=== PATIENT | female | born 1960 | race Two or more races ===

== ENCOUNTER 2025-04-27 10:03 | Inpatient (IN) | payer OTHER ==
[~2025-04-27] VITALS: Ht 165.1 cm; Wt 85.8 kg
--- NOTE | 2025-04-27 10:13 | ED.PDOC ---
HPI Comments 65 year old female with PMHx NV, DM, HTN, asthma, presents to the ED via EMS with a chief complaint of chest pressure onset 3 days. Per EMS, patient was at PCP clinic, 911 was called due to patient's symptoms, was hypertensive. Upon EMS arrival, patient's BP was 180 systolic. Patient states she began experiencing chest pressure radiating to her head 3 days ago, also began experiencing nausea. Patient recently moved in February 2025, was having issues with insurance, has not been complaint with medication. Patient had appointment with PCP today, was told she is dehydrated. Denies fever, chills, vomiting, diarrhea, abdominal pain, dizziness, blurred vision, numbness/tingling, dysuria, hematuria, shortness of breath, cough, cold, congestion. No other symptoms or modifying factors present at this time. Time Seen by MD: 10:08 Reviewed Notes: Medications, Allergies Allergies: Coded Allergies: Flu Virus Vaccine (Verified Allergy, Unknown, 04/27/25) Sulfa Antibiotics (Verified Allergy, Unknown, 04/27/25) Information Source: Patient, Emergency Med Personnel Mode of Arrival: EMS Severity: Moderate Timing: Days Duration: Since onset Prehospital treatment: None Location: Chest (L) Radiation: Other Quality: Pressure Onset: At Rest Cardiac Risk Factors: HTN, Diabetes PE Risk Factors: None History of: NV Past Medical History PAST MEDICAL HISTORY: Asthma, DM, HTN, NV Surgical History: Denies all surgeries 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 Family History Family History: Reviewed,noncontributory to illness, No family hx of Cancer, No family hx of DM, No family hx of Heart lidya, No family hx of HTN, No family hx ofKidney lidya, No family hx of Liver lidya, No family hx of Lung lidya, No family hx of Stroke Social History Smoker: Non-Smoker Alcohol: Denies ETOH Use Drugs: Denies Drug Use Lives In: Home Constitutional: denies: chills, diaphoresis, fatigue, fever, malaise, sweats, weakness, others EENTM: denies: blurred vision, double vision, ear bleeding, ear discharge, ear drainage, ear pain, ear ringing, eye pain, eye redness, hearing loss, mouth pain, mouth swelling, nasal discharge, nose bleeding, nose congestion, nose pain, photophobia, tearing, throat pain, throat swelling, voice changes, others Respiratory: denies: cough, hemoptysis, orthopnea, SOB at rest, shortness of breath, SOB with excertion, stridor, wheezing, others Cardiovascular: reports: chest pain, others (hypertension); denies: dizzy spells, diaphoresis, Dyspnea on exertion, edema, irregular heart beat, left arm pain, lightheadedness, palpitations, PND, syncope Gastrointestinal: reports: nausea; denies: abdomen distended, abdominal pain, blood streaked bowels, constipated, diarrhea, dysphagia, difficulty swallowing, hematemesis, melena, poor appetite, poor fluid intake, rectal bleeding, rectal pain, vomiting, others Genitourinary: denies: abnormal vagina bleeding, burning, dyspareunia, dysuria, flank pain, frequency, hematuria, incontinence, pain, , vagina discharge, urgency, others Neurological: reports: headache; denies: dizziness, fainting, left sided numbness, left sided weakness, numbness, paresthesia, pre-existing deficit, right sided numbness, right sided weakness, seizure, speech problems, tingling, tremors, weakness, others Musculoskeletal: denies: back pain, gout, joint pain, joint swelling, muscle pain, muscle stiffness, neck pain, others Integumetry: denies: bruises, change in color, change in hair/nails, dryness, laceration, lesions, lumps, rash, wounds, others Allergic/Immunocompromised: denies: Difficulty Healing, Frequent Infections, Hives, Itching, others Hematologic/Lymphatic: denies: anemia, blood clots, easy bleeding, easy brui sing, swollen glands, others Endocrine: denies: excessive hunger, excessive sweating, excessive thirst, ex cessive urination, flushing, intolerance to cold, intolerance to heat, unexplained weight gain, unexplained weight loss, others Psychiatric: denies: anxiety, bipolar disorder, depression, hopeless, panic disorder, schizophrenia, sleepless, suicidal, others All Other Systems: Reviewed and Negative Physical Exam General Appearance: Normal HEENT: Normal ENT Inspection, Pharynx Normal, TMs Normal Neck: Full Range of Motion, Non-Tender, Normal, Normal Inspection Respiratory: Chest Non-Tender, Lungs Clear, No Accessory Muscle Use, No Respiratory Distress, Normal Breath Sounds Cardiovascular: No Edema, No JVD, No Murmur, No Gallop, Normal Peripheral Pulses, Regular Rate/Rhythm Breast Exam: Deferred Gastrointestinal: No Organomegaly, Non Tender, No Pulsatile Mass, Normal Bowel Sounds, Soft Genitalia: Deferred Pelvic: Deferred Rectal: Deferred Extremities: No calf tenderness, Normal capillary refill, Normal inspection, Normal range of motion, Non-tender, No pedal edema Musculoskeletal : Apperance: Normal Neurologic: Alert, lead java j2ee developer II-XII nml as Tested, No Motor Deficits, Normal Affect, Normal Mood, No Sensory Deficits Cerebellar Function: Normal Reflexes: Normal Skin: Dry, Normal Color, Warm Lymphatic: No Adenopathy Was a procedure done? Was a procedure done?: No CP Differential Dx Differential Diagnosis: Hypoxia, MAT, NV Differential Diagnosis: HTN Essential, HTN Accelerated Differential Diagnosis: Gastritis, Myocardial Infarction, Pericarditis X-Ray, Labs, Meds, VS Vital Signs Date Time Temp Pulse Resp B/P (MAP) Pulse Ox O2 Delivery O2 Flow Rate FiO2 04/27/25 13:09 81 04/27/25 12:00 79 19 177/94 (121) 96 04/27/25 12:00 79 04/27/25 11:31 211/102 04/27/25 11:13 65 04/27/25 10:34 97.7 68 17 189/82 (117) 97 97.7 04/27/25 10:16 68 17 97 Room Air* 0 21 04/27/25 10:11 56 04/27/25 10:03 97.7 59 23 170/99 95 97.7 Lab Test 04/27/25 13:20 04/27/25 11:41 04/27/25 11:08 04/27/25 10:18 Range/Units Troponin I High Sensitivity 24 22 20 </=34 ng/L Urine Color Light-yellow Yellow Urine Clarity Clear Clear Urine pH 6.5 5.0-9.0 Urine Specific [place] 1.013 1.001-1.035 Urine Protein Negative Negative Urine Ketones Negative Negative Urine Blood Negative Negative /uL Urine Nitrite Negative Negative Urine Bilirubin Negative Negative Urine Urobilinogen Normal Negative mg/dL Urine Leukocyte Esterase Negative Negative /uL Urine RBC 4 0 - 4 /hpf Urine Microscopic WBC 1 0-5 /HPF Urine Squamous Epithelial Cells Few <5 /hpf Urine Bacteria None seen None Seen /hpf Urine Glucose Normal Normal mg/dL White Blood Count 6.2 4.4-10.8 10^3/uL Red Blood Count 4.78 4.0-5.20 10^6/uL Hemoglobin 15.3 12.2-16.2 g/dL Hematocrit 43.4 36.0-46.0 % Mean Corpuscular Volume 90.9 80.0-100.0 fL Mean Corpuscular Hemoglobin 32.1 H 28.0-32.0 pg Mean Corpuscular Hemoglobin Concent 35.3 32.0-36.0 g/dL Red Cell Distribution Width 12.4 11.8-14.3 % Platelet Count 190 140-450 10^3/uL Mean Platelet Volume 7.5 6.9-10.8 fL Neutrophils (%) (Auto) 59.9 37.0-80.0 % Lymphocytes (%) (Auto) 27.8 10.0-50.0 % Monocytes (%) (Auto) 9.4 0.0-12.0 % Eosinophils (%) (Auto) 2.2 0.0-7.0 % Basophils (%) (Auto) 0.7 0.0-2.0 % Neutrophils # (Auto) 3.7 1.6-8.6 10 ^3/uL Lymphocytes # (Auto) 1.7 0.4-5.4 10 ^3/uL Monocytes # (Auto) 0.6 0-1.3 10 ^3/uL Eosinophils # (Auto) 0.1 0-0.8 10 ^3/uL Basophils # (Auto) 0 0-0.2 10 ^3/uL Nucleated Red Blood Cells 0.0 % Sodium Level 141 136-145 mmol/L Potassium Level 4.2 3.5-5.1 mmol/L Chloride Level 105 98-107 mmol/L Carbon Dioxide Level 29 20-31 mmol/L Anion Gap 7 5-15 Blood Urea Nitrogen 9 9-23 mg/dL Creatinine 0.82 0.550-1.02 mg/dL Glomerular Filtration Rate Calc 80 >90 mL/min BUN/Creatinine Ratio 11.0 10.0-20.0 Serum Glucose 190 H 74-106 mg/dL Calcium Level 9.5 8.7-10.4 mg/dL Current Medications Medications (Trade) Dose Ordered Sig/Laureano Route Start Time Stop Time Status Last Admin Acetaminophen/ Hydrocodone Bitart ([place] 5/325MG Tab) 1 tab ONCE ONCE PO 04/27/25 10:15 04/27/25 10:16 DC 04/27/25 10:33 Hydralazine HCl (Apresoline Injection) 20 mg ONCE ONCE IV 04/27/25 11:15 04/27/25 11:16 DC 04/27/25 11:[address] [address] Ph: [phone] DIAGNOSTIC IMAGING Diagnostic Imaging Report : [id number] Signed PATIENT: Danni Sharma ACCT: [id number] UNIT: [id number] : 1960 LOC: ER ROOM / BED: / AGE / SEX: 65 / F ADM STATUS: REG ER SERVICE 102 ORDERING PHYSICIAN: ERIC BAY MD PROCEDURE(s): CXRP - CHEST PORTABLE REASON: cp ORDER NUMBER(s): [id number], ACCESSION NUMBER(s): [id number] EXAM: XY CHEST PORTABLE Indication: cp Technique: Single frontal view of the chest was obtained Comparison: None FINDINGS: Lines and Tubes: None Lungs: No focal consolidation. Pleura: No effusion. No pneumothorax. Cardiomediastinal contours: Unremarkable Bones: No acute osseous abnormality. IMPRESSION: No acute cardiopulmonary disease. ATED BY: NICKY ROBLES MD DICTATED DATE/TIME: 04/27/25 1037 SIGNED BY: NICKY ROBLES MD SIGNED DATE/TIME: 04/27/25 1037 CC: Time of 1ST Reevaluation: 10:38 Reevaluation 1ST: Unchanged Patient Education/Counseling: Diagnosis, Treatment, Prognosis Family Education/Counseling: No Family Present SEPSIS Sepsis Screen Physician Orders Chest Portable (04/27/25 10:27) Electrocardigram (04/27/25 10:09) Electrocardigram (04/27/25 11:09) Electrocardigram (04/27/25 13:09) Head Without Contrast (04/27/25 11:57) Vital Signs Date Time Temp Pulse Resp B/P (MAP) Pulse Ox O2 Delivery O2 Flow Rate FiO2 04/27/25 13:09 81 04/27/25 12:00 79 19 177/94 (121) 96 04/27/25 12:00 79 114/25 11:31 211/102 04/27/25 11:13 65 04/27/25 10:34 97.7 68 17 189/82 (117) 97 97.7 04/27/25 10:16 68 17 97 Room Air* 0 21 04/27/25 10:11 56 04/27/25 10:03 97.7 59 23 170/99 95 97.7 Laboratory Tests Test 04/27/25 10:18 White Blood Count 6.2 10^3/uL (4.4-10.8) Medications Medications Dose Ordered Sig/Laureano Route Start Time Stop Time Status Last Admin Dose Admin Acetaminophen/ Hydrocodone Bitart 1 tab ONCE ONCE PO 04/27/25 10:15 04/27/25 10:16 DC 04/27/25 10:33 Hydralazine HCl 20 mg ONCE ONCE IV 04/27/25 11:15 04/27/25 11:16 DC 04/27/25 11:31 Departure 1 Departure Time of Disposition: 14:23 (Patient presented with hypertension and symptoms concerning for hypertensive emergency. Patient is receiving iv blood pressure medications requiring intensive monitoring. Data: 1. I ordered and reviewed the result of at least 3 labs including a CBC, BMP, and Urinalysis. 2. I independent ly interpreted the following tests: CT Brain: Which appears benign. EKG which is Normal Sinus RhythmRisk:This patient has a high risk of morbidity due to further diagnostic testing or treatment and may suffer from an acute cardiac disorder. Workup reveals hypertensive emergency and patient should be admitted for further workup. and possible expert consultation. ) Impression: Primary Impression: Hypertensive emergency Disposition: 09 ADMITTED INPATIENT Admit to: Tele Condition: Guarded Critical Care Note Critical Care Time?: Yes Critical care comment: Hypertensive emergency Authorized and Performed by: Eric Bay MD Total critical care time: Approximately 39 minutes Due to a high probability of clinically significant, life threatening deterioration, the patient required my highest level of preparedness to intervene emergently and I personally spent this critical care time directly and personally managing the patient. This critical care time included obtaining a history; examining the patient; pulse oximetry; ordering and review of studies; arranging urgent treatment with development of a management plan; evaluation of patient's response to treatment; frequent reassessment; and, discussions with other providers. This critical care time was performed to assess and manage the high probability of imminent, life-threatening deterioration that could result in multi-organ failure. It was exclusive of separately billable procedures and treating other patients and teaching time. Please see my other sections and the rest of the note for further information on patient assessment and treatment. Stability Stability form required: No Heart Score Heart Score: Heart Score Response (Comments) Value History Moderate Suspicious 1 EKG Repolarization Disturb 1 Age 45-64 1 Risk Factors >3 or Hx ASHD 2 Troponin 1-2 x's Normal limit 1 Total 6 I personally scribed for ERIC BAY MD ([email or web address]) on 04/27/25 at 10:13. Electronically submitted by Devorah Lepe ([email or web address]). I personally scribed for ERIC BAY MD ([email or web address]) on 04/27/25 at 11:22. Electronically submitted by Devorah Lepe ([email or web address]). ERIC BAY MD Apr 27, 2025 10:13
[2025-04-27 10:16] VITALS: PULSE 68; RESP 17; O2SAT 97
[2025-04-27 10:32] LABS: Hematocrit 43.4 % (36.0-46.0); Hemoglobin 15.3 g/dL (12.2-16.2); Mean Corpuscular Hemoglobin 32.1 pg (28.0-32.0); Mean Corpuscular Volume 90.9 fL (80.0-100.0); Nucleated Red Blood Cells % 0.0 %
[2025-04-27] MEDS: HYDROcodone-ACET 5/325MG TAB PO ONE (10:33)
--- NOTE | 2025-04-27 10:39 | DVH ---
EXAM: XY CHEST PORTABLE Indication: cp Technique: Single frontal view of the chest was obtained Comparison: None FINDINGS: Lines and Tubes: None Lungs: No focal consolidation. Pleura: No effusion. No pneumothorax. Cardiomediastinal contours: Unremarkable Bones: No acute osseous abnormality. IMPRESSION: No acute cardiopulmonary disease.
[2025-04-27 10:42] LABS: Chloride 105 mmol/L (98-107); Potassium 4.2 mmol/L (3.5-5.1); Sodium 141 mmol/L (136-145)
[2025-04-27 10:43] LABS: Anion Gap 7 (5-15); Carbon Dioxide 29 mmol/L (20-31)
[2025-04-27 10:44] LABS: Calcium 9.5 mg/dL (8.7-10.4)
[2025-04-27 10:48] LABS: BUN/Creatinine Ratio 11.0 (10.0-20.0); Blood Urea Nitrogen 9 mg/dL (9-23)
[2025-04-27 10:55] LABS: Glucose 190 mg/dL (74-106)
[2025-04-27] MEDS: hydrALAZINE HCL 20 MG/ML VL IV ONE ×2 (11:31→19:35)
[2025-04-27 12:00] LABS: Urine Protein, UAD Negative (Negative)
--- NOTE | 2025-04-27 12:50 | DVH ---
EXAM: CT HEAD WITHOUT CONTRAST INDICATION: Headache, htn TECHNIQUE: CT of the head without intravenous contrast. Coronal and sagittal reformatted images are submitted. Radiation Dose : 1. Head: CT Dose: CTDI volume is 53.53 mGy. Dose-length product is 966.95 mGy*cm The dose indicators for CT are the volume Computed Tomography (CT) Dose Index (CTDIvol) and the Dose Length Product (DLP), and are measured in units of mGy and mGy-cm, respectively. These indicators are not patient dose, but values generated from the CT scanner acquisition factors. The report includes radiation exposure data for exposures received during this examination. All CT scans at this medical facility are performed using dose modulation techniques as appropriate to a performed exam including the following: Automated exposure control was utilized; adjustment of the MA and/or KV according to patient size; and use of iterative reconstruction technique. COMPARISON: None FINDINGS: There is no evidence of acute intracranial hemorrhage, extra-axial collection, mass effect, midline shift, herniation or hydrocephalus. There are periventricular and subcortical hypodensities, nonspecific, but likely reflecting sequelae of chronic microvascular ischemic changes. The ventricles, sulci and cisterns are age appropriate. The quintero-white differentiation is intact. Vascular calcifications are present in the vertebral arteries. The visualized paranasal sinuses and mastoid air cells are clear. No depressed calvarial fracture. The surrounding soft tissues are unremarkable. IMPRESSION: 1. No evidence of acute intracranial abnormality. HS:Y
[2025-04-27] MEDS ORDERED: DEXTROSE (50%) 50ML SYRG IV PRN (19:15)
[2025-04-27] MEDS ORDERED: ALBUTEROL SULF 2.5 MG/0.5ML(0.5%) NEB SOLN NEB PRN (19:15)
[2025-04-27] MEDS ORDERED: ACETAMINOPHEN 325 MG TAB PO PRN (19:15)
[2025-04-27 19:53] VITALS: PULSE 77; RESP 16; O2SAT 98
[2025-04-27] MEDS: ONDANSETRON HCL 4 MG/2 ML VIAL IV PRN (20:14)
[2025-04-27] MEDS: TEMAZEPAM 15 MG CAP PO PRN (20:14)
[2025-04-27 21:00] VITALS: BP 158/79; PULSE 89; RESP 16; TEMP 97.7; O2SAT 94
--- NOTE | 2025-04-27 21:32 | DVHHP2 ---
History of Present Illness Reason for Visit: Chest pain History of Present Illness 65-year-old female presents for evaluation of chest pain. Patient endorses a three day history of substernal pressure-like chest pain with associated headache. Today she presents to the clinic and was advised to present to the emergency department due to elevated blood pressure in the 180s. Denies shortness or breath. No other acute complaints reported. Past Medical History Diabetes mellitus, hypertension, mi, asthma Past Surgical History Denies Family History Noncontributory Smoke: No ALCOHOL: none Drugs: None Lives: with Family Review of Systems Review of Systems Review of systems are currently negative otherwise addressed in HPI. Allergies: Coded Allergies: Flu Virus Vaccine (Verified Allergy, Unknown, 04/27/25) Sulfa Antibiotics (Verified Allergy, Unknown, 04/27/25) Medications Current Medications Medications Dose Ordered Sig/Laureano Route Start Time Stop Time Status Last Admin Dose Admin Lisinopril 40 mg DAILY PO 04/28/25 10:00 Atorvastatin Calcium 40 mg HS PO 04/27/25 22:00 Metoprolol Tartrate 50 mg BID PO 04/27/25 22:00 Albuterol 2.5 mg Q6HPRN PRN NEB 04/27/25 19:15 Diagnostic Test (Pha) 1 strip ACHS 04/27/25 22:00 Insulin Human Regular ACHS SC 04/27/25 22:00 Dextrose 50 ml UD PRN IV 04/27/25 19:15 Temazepam 15 mg QHSP PRN PO 04/27/25 19:15 04/27/25 20:14 15 MG Ondansetron HCl 4 mg Q4HP PRN IV 04/27/25 19:15 04/27/25 20:14 4 MG Acetaminophen 650 mg Q6HP PRN PO 04/27/25 19:15 Exam Vital Signs Vital Signs Date Time Temp Pulse Resp B/P (MAP) Pulse Ox O2 Delivery O2 Flow Rate FiO2 04/27/25 20:55 89 16 158/79 (105) 97 04/27/25 19:53 Room Air* 0 21 04/27/25 10:34 97.7 97.7 Exam Gen: 65-year-old female in mild distress Skin: Warm, dry, normal color and texture, no rash. HEENT: Normocephalic atraumatic, mucous membranes moist and pink. Neck: Cervical and supraclavicular nodes normal without enlargement, trachea is midline, thyroid gland is normal without masses. Pulmonary: Clear to auscultation and percussion bilaterally. Cardiac: Regular rate and rhythm. No murmur Abdomen: Soft, nontender, nondistended, bowel sounds present all 4 quadrants, no guarding, no rigidity, no organomegaly. Extremities: No cyanosis, clubbing, no edema Neuro: Cranial nerves II through XII grossly intact, normal affect and speech, no focal motor deficits. Labs/Xrays ORDERING PHYSICIAN: ERIC GLEASON MD PROCEDURE(s): CXRP - CHEST PORTABLE REASON: cp ORDER NUMBER(s): [id number], ACCESSION NUMBER(s): [id number] EXAM: XY CHEST PORTABLE Indication: cp Technique: Single frontal view of the chest was obtained Comparison: None FINDINGS: Lines and Tubes: None Lungs: No focal consolidation. Pleura: No effusion. No pneumothorax. Cardiomediastinal contours: Unremarkable Bones: No acute osseous abnormality. IMPRESSION: No acute cardiopulmonary disease. RING PHYSICIAN: ERIC GLEASON MD PROCEDURE(s): HWOCT - HEAD WITHOUT CONTRAST REASON: headache, htn ORDER NUMBER(s): [id number], ACCESSION NUMBER(s): [id number] EXAM: CT HEAD WITHOUT CONTRAST INDICATION: Headache, htn TECHNIQUE: CT of the head without intravenous contrast. Coronal and sagittal reformatted images are submitted. Radiation Dose : 1. Head: CT Dose: CTDI volume is 53.53 mGy. Dose-length product is 966.95 mGy*cm The dose indicators for CT are the volume Computed Tomography (CT) Dose Index (CTDIvol) and the Dose Length Product (DLP), and are measured in units of mGy and mGy-cm, respectively. These indicators are not patient dose, but values generated from the CT scanner acquisition factors. The report includes radiation exposure data for exposures received during this examination. All CT scans at this medical facility are performed using dose modulation techniques as appropriate to a performed exam including the following: Automated exposure control was utilized; adjustment of the MA and/or KV according to patient size; and use of iterative reconstruction technique. COMPARISON: None FINDINGS: There is no evidence of acute intracranial hemorrhage, extra-axial collection, mass effect, midline shift, herniation or hydrocephalus. There are periventricular and subcortical hypodensities, nonspecific, but likely reflecting sequelae of chronic microvascular ischemic changes. The ventricles, sulci and cisterns are age appropriate. The quintero-white differentiation is intact. Vascular calcifications are present in the vertebral arteries. The visualized paranasal sinuses and mastoid air cells are clear. No depressed calvarial fracture. The surrounding soft tissues are unremarkable. IMPRESSION: 1. No evidence of acute intracranial abnormality. HS:Y Labs Test 04/27/25 13:20 04/27/25 11:41 04/27/25 10:18 Range/Units Troponin I High Sensitivity 24 </=34 ng/L Urine Color Light-yellow Yellow Urine Clarity Clear Clear Urine pH 6.5 5.0-9.0 Urine Specific [place] 1.013 1.001-1.035 Urine Protein Negative Negative Urine Ketones Negative Negative Urine Blood Negative Negative /uL Urine Nitrite Negative Negative Urine Bilirubin Negative Negative Urine Urobilinogen Normal Negative mg/dL Urine Leukocyte Esterase Negative Negative /uL Urine RBC 4 0 - 4 /hpf Urine Microscopic WBC 1 0-5 /HPF Urine Squamous Epithelial Cells Few <5 /hpf Urine Bacteria None seen None Seen /hpf Urine Glucose Normal Normal mg/dL White Blood Count 6.2 4.4-10.8 10^3/uL Red Blood Count 4.78 4.0-5.20 10^6/uL Hemoglobin 15.3 12.2-16.2 g/dL Hematocrit 43.4 36.0-46.0 % Mean Corpuscular Volume 90.9 80.0-100.0 fL Mean Corpuscular Hemoglobin 32.1 H 28.0-32.0 pg Mean Corpuscular Hemoglobin Concent 35.3 32.0-36.0 g/dL Red Cell Distribution Width 12.4 11.8-14.3 % Platelet Count 190 140-450 10^3/uL Mean Platelet Volume 7.5 6.9-10.8 fL Neutrophils (%) (Auto) 59.9 37.0-80.0 % Lymphocytes (%) (Auto) 27.8 10.0-50.0 % Monocytes (%) (Auto) 9.4 0.0-12.0 % Eosinophils (%) (Auto) 2.2 0.0-7.0 % Basophils (%) (Auto) 0.7 0.0-2.0 % Neutrophils # (Auto) 3.7 1.6-8.6 10 ^3/uL Lymphocytes # (Auto) 1.7 0.4-5.4 10 ^3/uL Monocytes # (Auto) 0.6 0-1.3 10 ^3/uL Eosinophils # (Auto) 0.1 0-0.8 10 ^3/uL Basophils # (Auto) 0 0-0.2 10 ^3/uL Nucleated Red Blood Cells 0.0 % Sodium Level 141 136-145 mmol/L Potassium Level 4.2 3.5-5.1 mmol/L Chloride Level 105 98-107 mmol/L Carbon Dioxide Level 29 20-31 mmol/L Anion Gap 7 5-15 Blood Urea Nitrogen 9 9-23 mg/dL Creatinine 0.82 0.550-1.02 mg/dL Glomerular Filtration Rate Calc 80 >90 mL/min BUN/Creatinine Ratio 11.0 10.0-20.0 Serum Glucose 190 H 74-106 mg/dL Calcium Level 9.5 8.7-10.4 mg/dL SEPSIS Sepsis Screen Date sepsis recognized/suspect: Apr 27, 2025 Time Sepsis recognized/suspect: 1944 Recent Procedure: No On Antibiotic Therapy: No Respiratory Rate >20: No Heart Rate >90: Yes Temp<36 C (96.8 F) or >38.3 C: No SBP <90 or MAP <65 mmHG: No New Acute Mental Status Change: No Is the patient on CPAP, BIPAP,: No Physician Orders Lisinopril Tablet (Zestril Tablet) (04/28/25 10:00) Atorvastatin (Lipitor) (04/27/25 22:00) Metoprolol Tartrate Tablet (Lopressor Ta (04/27/25 22:00) Albuterol Medneb (Ventolin Medneb) (04/27/25 19:15) Basic Metabolic Panel (04/28/25 04:00) Consistent Carb(Ccho)Diabetes (04/28/25 Breakfast) Glucose Blood (Accu-Chek Comfort Curve T (04/27/25 22:00) Insulin R (Human) (Insulin R) (04/27/25 22:00) Dextrose 50% Syringe (04/27/25 19:15) Admit (04/27/25 19:08) Temazepam (Restoril) (04/27/25 19:15) Ondansetron Hcl (Zofran) (04/27/25 19:15) Echo 2d Mode Cardiac Dop (04/27/25 19:08) Condition: Stable (04/27/25 19:08) Acetaminophen Tablet (Tylenol Tablet) (04/27/25 19:15) Bedrest With Bathroom Privileg (04/27/25 19:08) Vital Signs Date Time Temp Pulse Resp B/P (MAP) Pulse Ox O2 Delivery O2 Flow Rate FiO2 04/27/25 20:55 89 16 158/79 (105) 97 04/27/25 20:36 99 20 157/72 (100) 95 04/27/25 20:00 81 20 154/61 (92) 95 04/27/25 19:53 77 16 98 Room Air* 0 21 04/27/25 19:35 233/113 04/27/25 19:20 77 16 233/113 (153) 96 04/27/25 18:00 68 17 134/86 (102) 95 04/27/25 16:00 77 19 165/84 (111) 96 04/27/25 16:00 64 04/27/25 15:00 79 17 172/88 (116) 95 Laboratory Tests Test 04/27/25 10:18 White Blood Count 6.2 10^3/uL (4.4-10.8) Medications Medications Dose Ordered Sig/Laureano Route Start Time Stop Time Status Last Admin Dose Admin Acetaminophen/ Hydrocodone Bitart 1 tab ONCE ONCE PO 04/27/25 10:15 04/27/25 10:16 DC 04/27/25 10:33 1 TAB Hydralazine HCl 20 mg ONCE ONCE IV 04/27/25 11:15 04/27/25 11:16 DC 04/27/25 11:31 20 MG Hydralazine HCl 20 mg ONCE ONCE IV 04/27/25 19:30 04/27/25 19:31 DC 04/27/25 19:35 20 MG Ondansetron HCl 4 mg Q4HP PRN IV 04/27/25 19:15 04/27/25 20:14 4 MG Temazepam 15 mg QHSP PRN PO 04/27/25 19:15 04/27/25 20:14 15 MG Assessment/Plan Assessment/Plan Assessment Hypertensive urgency Diabetes mellitus Hypertension Plan Admit the patient to Med surge to the hospitalist As needed antihypertensives Resume home medications Echocardiogram pending Continue treatment per orders Plan discussed with: Patient My Orders Orders - VALENTIN MUHAMMAD Procedure Category Date Status Time Lisinopril Tablet PHA 04/28/25 In Process (Zestril Tablet) 10:00 Atorvastatin (Lipitor) PHA 04/27/25 In Process 22:00 Metoprolol Tartrate PHA 04/27/25 In Process Tablet (Lopressor Ta 22:00 Albuterol Medneb PHA 04/27/25 In Process (Ventolin Medneb) 19:15 Basic Metabolic Panel LAB 04/28/25 Verified 04:00 Consistent DIET 04/28/25 Transmitted Carb(Ccho)Diabetes Breakfast Glucose Blood PHA 04/27/25 In Process (Accu-Chek Comfort 22:00 Insulin R (Human) PHA 04/27/25 In Process (Insulin R) 22:00 Dextrose 50% Syringe PHA 04/27/25 In Process 19:15 Admit ADMIT 04/27/25 Transmitted 19:08 Temazepam (Restoril) PHA 04/27/25 In Process 19:15 Ondansetron Hcl PHA 04/27/25 In Process (Zofran) 19:15 Echo 2d Mode Cardiac US 04/27/25 Logged DOP 19:08 Condition: Stable KAREN 04/27/25 In Process 19:08 Acetaminophen Tablet PHA 04/27/25 In Process (Tylenol Tablet) 19:15 Bedrest With Bathroom KAREN 04/27/25 In Process Privileg 19:08 Date of Service: Apr 27, 2025 Billing Provider: VALENTIN MUHAMMAD Common Visit Codes: [id number] INP/OBS CARE (HIGH) VALENTIN MUHAMMAD Apr 27, 2025 21:31
[2025-04-27 21:45] VITALS: BP 170/85; PULSE 97; PULSE 99; RESP 19; TEMP 98.2; O2SAT 96; O2SAT 99
[2025-04-27] MEDS: ATORVASTATIN 20 MG TAB PO SCH (22:16)
[2025-04-27] MEDS: ACCU-CHEK COMFORT CURVE STRIP VI SCH (22:17)
[2025-04-27] MEDS: METOPROLOL TARTRATE 50 MG TAB PO SCH (22:17)
[2025-04-27] MEDS: InsuLIN REG 1unit/0.01ml Soln (100units/ml) SC SCH (22:21)
[2025-04-28] VITALS (14 sets, daily range): BP systolic 141–171; BP diastolic 77–93; PULSE 63–86; RESP 16–19; TEMP 97.9–98.4; O2SAT 95–100
[2025-04-28] MEDS: HYDROcodone-ACET 5/325MG TAB PO ONE (06:06)
[2025-04-28 06:13] LABS: Chloride 105 mmol/L (98-107); Potassium 4.0 mmol/L (3.5-5.1); Sodium 143 mmol/L (136-145)
[2025-04-28 06:14] LABS: Anion Gap 8 (5-15); Calcium 9.5 mg/dL (8.7-10.4); Carbon Dioxide 30 mmol/L (20-31)
[2025-04-28 06:19] LABS: BUN/Creatinine Ratio 9.7 (10.0-20.0)
[2025-04-28 06:23] LABS: Blood Urea Nitrogen 7 mg/dL (9-23); Glucose 150 mg/dL (74-106)
[2025-04-28] MEDS: LISINOPRIL 20 MG TAB PO SCH (09:52)
--- NOTE | 2025-04-28 12:49 | DVHPN2 ---
Subjective BP is better and no headaches Reviewed: H&P Changes from previous H/P or p: No Changes Objective Vitals Vital Signs Date Time Temp Pulse Resp B/P (MAP) Pulse Ox O2 Delivery O2 Flow Rate FiO2 04/28/25 11:41 18 158/77 (104) 04/28/25 10:53 75 04/28/25 10:00 99 Nasal Cannula* 2 28 04/28/25 09:00 98.2 98.2 Intake/Output Intake and Output 04/28/25 05:00 Intake Total 50 ml Balance 50 ml Intake Oral 50 ml # Voids 3 General Appearance: Alert, Oriented X3 HEENT: Atraumatic Lungs: Clear to auscultation Cardiovascular: Regular rate, Normal S1, Normal S2 Abdomen: Normal bowel sounds Medications Current Medications Medications Dose Ordered Sig/Laureano Route Start Time Stop Time Status Last Admin Dose Admin Lisinopril 40 mg DAILY PO 04/28/25 10:00 04/28/25 09:52 40 MG Atorvastatin Calcium 40 mg HS PO 04/27/25 22:00 04/27/25 22:16 40 MG Metoprolol Tartrate 50 mg BID PO 04/27/25 22:00 04/28/25 09:53 50 MG Albuterol 2.5 mg Q6HPRN PRN NEB 04/27/25 19:15 Diagnostic Test (Pha) 1 strip ACHS 04/27/25 22:00 04/28/25 12:37 1 STRIP Insulin Human Regular ACHS SC 04/27/25 22:00 04/28/25 12:40 3 UNITS Dextrose 50 ml UD PRN IV 04/27/25 19:15 Temazepam 15 mg QHSP PRN PO 04/27/25 19:15 04/27/25 20:14 15 MG Ondansetron HCl 4 mg Q4HP PRN IV 04/27/25 19:15 04/27/25 20:14 4 MG Acetaminophen 650 mg Q6HP PRN PO 04/27/25 19:15 Hydralazine HCl 10 mg Q6HP PRN IV 04/28/25 11:30 Laboratory Results Laboratory Tests 04/27/25 10:18 04/28/25 04:49 Chemistry Test 04/28/25 04:49 Calcium Level 9.5 mg/dL (8.7-10.4) Urinalysis Test 04/27/25 11:41 Urine Color Light-yellow (Yellow) Urine Clarity Clear (Clear) Urine pH 6.5 (5.0-9.0) Urine Specific [place] 1.013 (1.001-1.035) Urine Protein Negative (Negative) Urine Ketones Negative (Negative) Urine Blood Negative /uL (Negative) Urine Nitrite Negative (Negative) Urine Bilirubin Negative (Negative) Urine Urobilinogen Normal mg/dL (Negative) Urine Leukocyte Esterase Negative /uL (Negative) Urine RBC 4 /hpf (0 - 4) Urine Microscopic WBC 1 /HPF (0-5) Urine Squamous Epithelial Cells Few /hpf (<5) Urine Bacteria None seen /hpf (None Seen) Urine Glucose Normal mg/dL (Normal) Assessment/Plan Assessment/Plan Hypertensive urgency Diabetes mellitus Hypertension Continue metoprolol, lisinopril Added amlodipine today for uncontrolled BP Dispo: Possible DC tomorrow Plan discussed with: Patient My Orders Orders - PORFIRIO KEMP MD Procedure Category Date Status Time Hydralazine Injection PHA 04/28/25 In Process (Apresoline Inject 11:30 Date of Service: Apr 28, 2025 Billing Provider: PORFIRIO KEMP MD Common Visit Codes: [id number] INP/OBS CARE(HIGH) PORFIRIO KEMP MD Apr 28, 2025 12:49
[2025-04-29] VITALS (8 sets, daily range): BP systolic 159–187; BP diastolic 79–95; PULSE 58–77; RESP 17–19; TEMP 36.5; O2SAT 96–99
[2025-04-29] MEDS ORDERED: MET50T PO (08:55)
[2025-04-29] MEDS ORDERED: MECL12.586 PO (08:55)
[2025-04-29] MEDS ORDERED: ATOR20TA50 PO (08:55)
[2025-04-29] MEDS ORDERED: LISI20TA56 PO (08:55)
[2025-04-29] MEDS ORDERED: AMLO1TAB23 PO (08:56)
[2025-04-29] MEDS: MECLIZINE HCL 25 MG TAB PO ONE (09:40)
--- NOTE | 2025-04-29 12:19 | DVHDS2 ---
Discharge Summary Date of Admission Apr 27, 2025 at 19:08 Date of Discharge: Apr 29, 2025 Admitting Diagnosis Hypertensive urgency Diabetes mellitus Labs/Diagnostic Data: Laboratory Results Test 04/29/25 11:24 04/28/25 04:49 04/27/25 13:20 04/27/25 11:41 POC Glucose 159 mg/dl (70-106) Sodium Level 143 mmol/L (136-145) Potassium Level 4.0 mmol/L (3.5-5.1) Chloride Level 105 mmol/L (98-107) Carbon Dioxide Level 30 mmol/L (20-31) Anion Gap 8 (5-15) Blood Urea Nitrogen 7 mg/dL (9-23) Creatinine 0.72 mg/dL (0.550-1.02) Glomerular Filtration Rate Calc 94 mL/min (>90) BUN/Creatinine Ratio 9.7 (10.0-20.0) Serum Glucose 150 mg/dL (74-106) Calcium Level 9.5 mg/dL (8.7-10.4) Troponin I High Sensitivity 24 ng/L (</=34) Urine Color Light-yellow (Yellow) Urine Clarity Clear (Clear) Urine pH 6.5 (5.0-9.0) Urine Specific [place] 1.013 (1.001-1.035) Urine Protein Negative (Negative) Urine Ketones Negative (Negative) Urine Blood Negative /uL (Negative) Urine Nitrite Negative (Negative) Urine Bilirubin Negative (Negative) Urine Urobilinogen Normal mg/dL (Negative) Urine Leukocyte Esterase Negative /uL (Negative) Urine RBC 4 /hpf (0 - 4) Urine Microscopic WBC 1 /HPF (0-5) Urine Squamous Epithelial Cells Few /hpf (<5) Urine Bacteria None seen /hpf (None Seen) Urine Glucose Normal mg/dL (Normal) Test 04/27/25 10:18 White Blood Count 6.2 10^3/uL (4.4-10.8) Red Blood Count 4.78 10^6/uL (4.0-5.20) Hemoglobin 15.3 g/dL (12.2-16.2) Hematocrit 43.4 % (36.0-46.0) Mean Corpuscular Volume 90.9 fL (80.0-100.0) Mean Corpuscular Hemoglobin 32.1 pg (28.0-32.0) Mean Corpuscular Hemoglobin Concent 35.3 g/dL (32.0-36.0) Red Cell Distribution Width 12.4 % (11.8-14.3) Platelet Count 190 10^3/uL (140-450) Mean Platelet Volume 7.5 fL (6.9-10.8) Neutrophils (%) (Auto) 59.9 % (37.0-80.0) Lymphocytes (%) (Auto) 27.8 % (10.0-50.0) Monocytes (%) (Auto) 9.4 % (0.0-12.0) Eosinophils (%) (Auto) 2.2 % (0.0-7.0) Basophils (%) (Auto) 0.7 % (0.0-2.0) Neutrophils # (Auto) 3.7 10 ^3/uL (1.6-8.6) Lymphocytes # (Auto) 1.7 10 ^3/uL (0.4-5.4) Monocytes # (Auto) 0.6 10 ^3/uL (0-1.3) Eosinophils # (Auto) 0.1 10 ^3/uL (0-0.8) Basophils # (Auto) 0 10 ^3/uL (0-0.2) Nucleated Red Blood Cells 0.0 % Other Laboratory Tests 04/28/25 04:49 04/27/25 10:18 Brief Hx & Hospital Course: Is 65 years old woman presents to the emergency with hypertensive urgency. Patient started on amlodipine 5 mg daily continue metoprolol. Patient's blood pressure was 170s trended down to 160 today increase amlodipine to 10 mg daily. The patient is medically stable to be discharged and follow up with the outpatient in one week to assess for blood pressure Condition at Discharge: Stable Final Diagnosis/Problems List Hypertensive urgency DM Discharge Disposition: Home Discharge Instruct/Medications Diet: Regular Activity: No Restrictions, As Tolerated Follow Up/Referral: PCP in 7 days Medications: lisinopri, metoprolol, amlodipine, meclizine Scheduled Amlodipine Besylate (Amlodipine Besylate), 1 TAB PO DAILY Atorvastatin Calcium (Atorvastatin Calcium), 40 MG PO HS Lisinopril (Lisinopril), 40 MG PO DAILY Metoprolol Tartrate (Lopressor Tablet), 50 MG PO BID Scheduled PRN Meclizine Hcl (Meclizine Hcl), 1 TAB PO TID PRN 55 Discharge Statement: "Patient was advised to return to the ER or call 911 if any headaches, dizziness, shortness of breath, chest pain, abdominal pain, bleeding, fevers, or worsening of medical condition. Patient was counseled about treatment plan, medications, possible side effects, patientverbalized understanding. All questions were answered to the best of my ability. This discharge took greater then 30 minutes in planning, reviewing documentation, counseling the patient, and discussing with other team members." ASSESSMENT ASSESSMENT Assessment Date of Service: Apr 29, 2025 Billing Provider: ALBERTO CHAN MD Common Visit Codes: [id number] DISCH DAY >30min ALBERTO CHAN MD Apr 29, 2025 12:19
[2025-04-29] MEDS: hydrALAZINE HCL 20 MG/ML VL IV PRN (13:02)
== END 2025-04-29 13:48 | disposition home or self-care (01) | DRG 199 ==
LOC: ER 10:03 → EDBD 10:03 → OVERFLOW 19:08 → WEST WING 21:47
PROVIDERS: ADMIT Internal Medicine; ATTEND Internal Medicine
DX: I16.1 Hypertensive emergency (principal); E11.9 Type 2 diabetes mellitus without complications; J45.909 Unspecified asthma, uncomplicated; I10 Essential (primary) hypertension; I25.2 Old myocardial infarction; Z88.2 Allergy status to sulfonamides; Z88.7 Allergy status to serum and vaccine
CPT/HCPCS: 36415; 70450; 71045; 80048; 81001; 82962; 84484; 85025; 93306; 96374; 99291; G0378; J1815; J2405